=== PATIENT | female | born 1930 | race Caucasian/White ===

== ENCOUNTER 2017-02-04 01:09 | Observation (INO) | payer MEDICARE, OTHER ==
--- NOTE | 2017-02-04 02:02 | ERPHSYRPT ---
- History of Present Illness Time Seen by Provider: 02/04/17 01:40 Source: patient, family Exam Limitations: clinical condition Patient Subjective Stated Complaint: per pt "i was dx with the flu on friday at the [facility]. I started twitching about 8:30 tonight. it starts with my face and goes to my entire body. i got SOB earlier today." Triage Nursing Assessment: aox3, breathign easy unlabored, skin pink warm dry, steady slow gait, lungs clear equal bilat, muscle tremmors noted to bilat face that comes and goes Physician History: PATIENT WITH A HISTORY OR CORONARY ARTERY DISEASE, RECENTLY DIAGNOSED WITH INFLUENZA 2 DAYS AGO COMPLAINS OF RECURRENT LEFT FACIAL TWITCHING SINCE PM LAST NIGHT. DENIES FEVER, HEADACHE, BLURRED VISION, NUMBNESS, TINGLING OR WEAKNESS IN EXTREMITIES. PATIENT HAS OCCASIONAL COUGH, DENIES CHEST PAIN. Timing/Duration: yesterday Severity: moderate Character of Deficits: Left Facial, other (TWITCH) Deficits: no difficulties Baseline/Normal Cognition: alert oriented x 3 Current Cognition: alert oriented x 3 Baseline Gait: walks w/o assistance Associated Symptoms: other (FACIAL TWITCHING) Allergies/Adverse Reactions: No Known Drug Allergies Allergy (Unverified 02/04/17 01:20) Home Medications: Amlodipine Besylate 5 mg [Norvasc 5 mg] 5 mg PO DAILY 02/04/17 [History] Aspirin 81 mg PO DAILY 02/04/17 [History] Clopidogrel Bisulfate 75 mg [PLAVIX 75 MG Tablet] 75 mg PO DAILY 02/04/17 [History] Isosorbide Mononitrate 60 mg [Imdur 60MG] 60 mg PO DAILY 02/04/17 [History] Lisinopril 20 mg [Zestril 20 MG] 20 mg PO BID 02/04/17 [History] Metoprolol Tartrate 25 mg [Lopressor 25MG Tab] 25 mg PO BID 02/04/17 [ History] Multivitamin [Multivitamins] 1 each PO DAILY 02/04/17 [History] Pravastatin Sodium 40 mg PO DAILY 02/04/17 [History] Hx Tetanus, Diphtheria Vaccination/Date Given: No Hx Influenza Vaccination/Date Given: Yes (2015) Hx Pneumococcal Vaccination/Date Given: Yes - Review of Systems Constitutional: No Fever, No Chills Eyes: No Symptoms Ears, Nose, & Throat: No Symptoms Respiratory: Cough, Dyspnea Cardiac: No Chest Pain, No Edema, No Syncope Abdominal/Gastrointestinal: No Symptoms, No Abdominal Pain, No Nausea, No Vomiting, No Diarrhea Genitourinary Symptoms: No Symptoms, No Dysuria Musculoskeletal: No Symptoms, No Back Pain, No Neck Pain Skin: No Symptoms, No Rash Neurological: Tics, No Dizziness, No Focal Weakness, No Sensory Changes Psychological: No Symptoms Endocrine: No Symptoms All Other Systems: Reviewed and Negative - Past Medical History Pertinent Past Medical History: Yes Neurological History: No Pertinent History ENT History: No Pertinent History Cardiac History: Hypertension, Myocardial Infarction ([place]), Other Respiratory History: No Pertinent History Musculoskeletal History: No Pertinent History GI Medical History: No Pertinent History History: Other Psycho-Social History: No Pertinent History Female Reproductive Disorders: No Pertinent History - Past Surgical History Past Surgical History: Yes Cardiac: CABG Gastrointestinal: No Pertinent History Genitourinary: No Pertinent History Female Surgical History: Hysterectomy Other Surgical History: stents, hysterecomy, - Social History Smoking Status: Never smoker Drug Use: none Patient Lives Alone: Yes - Nursing Vital Signs Nursing Vital Signs: Initial Vital Signs Temperature 100.9 F Temperature Source Rectal Pulse Rate 69 Respiratory Rate 18 Blood Pressure [] 171/86 Pain Intensity 0 - Rich Coma Scale Best Eye Response ([place]): (4) open spontaneously Best Verbal Response ([place]): (5) oriented Best Motor Response ([place]): (6) obeys commands [place] Total: 15 - Physical Exam General Appearance: no apparent distress, alert Eye Exam: bilateral eye: normal inspection, PERRL, EOMI Ears, Nose, Throat Exam: normal ENT inspection Neck Exam: normal inspection Respiratory: normal breath sounds Cardiovascular: regular rate/rhythm, normal heart sounds Gastrointestinal: soft, normal bowel sounds Back Exam: normal inspection, normal range of motion Extremity Exam: normal inspection Peripheral Pulses: carotid (R): 2+, carotid (L): 2+, femoral (R): 2+, femoral (L ): 2+ 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, 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 Exam: normal hearing, normal speech, PERRL Coordination/Gait: normal finger to nose, normal gait Motor/Sensory: no motor deficit, no sensory deficit DTR: bicep (R): 2+, bicep (L): 2+, tricep (R): 2+, tricep (L): 2+, knee (R): 2+ , knee (L): 2+, ankle (R): 2+ Skin Exam: normal color SpO2 Interpretation: normal SpO2: 95 Oxygen Delivery: Room Air - Course EKG Interpreted by Me: RATE, NORMAL AXIS, Non-specific ST Changes - Radiology Exams Chest X-ray Interpretation: Interpreted by me (MILD CARDIOMEGALY, PREVIOUS STERNOTOMY , NO INFILTRATES) - CT Exams Head CT Interpretation: Tele-radiologist Report, No/Intracranial Hemorrhag Ordered Tests: Active Orders 24 hr Category Date Time Status Up Ad Alina ROUTINE Activity 02/04/17 03:21 Active Admission/Status Order ROUTINE Care 02/04/17 03:19 Active Cataract Lens Generator STAT Care 02/04/17 01:55 Active Code Status Order ROUTINE Care 02/04/17 03:19 Active EKG-ER Only STAT Care 02/04/17 01:55 Active IV Care Q6H Care 02/04/17 03:19 Active IV Insertion STAT Care 02/04/17 01:55 Active Intake and Output Q12H Care 02/04/17 03:19 Active Neuro Checks Q4H Care 02/04/17 03:19 Active Oxygen-ED Only NASAL CANNULA 2 lpm Care 02/04/17 01:55 Active Telemetry ROUTINE Care 02/04/17 03:19 Active Vital Signs Q4H Care 02/04/17 03:19 Active Regular Diet Diet 02/04/17 Breakfast Active CHEST 1 VIEW (PORTABLE) Stat Exams 02/04/17 01:55 Taken HEAD WITHOUT CONTRAST [CT] Stat Exams 02/04/17 01:55 Taken CBC W DIFF Stat Lab 02/04/17 01:58 Completed CMP Stat Lab 02/04/17 01:58 Completed PROTIME WITH INR Stat Lab 02/04/17 01:58 Completed UA W/ MICROSCOPIC Stat Lab 02/04/17 02:28 Completed Oxygen NASAL CANNULA 2 lpm RT 02/04/17 03:19 Active Transfer Order Routine Transfer 02/04/17 03:18 Ordered Medication Summary Generic Name Dose Route Start Last Admin Trade Name Freq PRN Reason Stop Dose Admin Amlodipine Besylate 5 mg 02/04/17 10:00 Norvasc 5 Mg PO 03/06/17 09:59 QAM ARSALAN Aspirin 81 mg 02/04/17 10:00 Ecotrin 81 Mg PO 03/06/17 09:59 DAILY [facility] Sodium Chloride 1,000 mls @ 50 mls/hr 02/04/17 02:00 02/04/17 02:13 Sodium Chloride 0.9% 1000 Ml IV 03/06/17 01:59 50 mls/hr .Q20H ARSALAN Administration Isosorbide Mononitrate 60 mg 02/04/17 10:00 Imdur 60mg PO 03/06/17 09:59 QAM [facility] Lisinopril 20 mg 02/04/17 10:00 Zestril 20 Mg PO 03/06/17 09:59 BID [facility] Metoprolol Tartrate 25 mg 02/04/17 10:00 Lopressor 25mg Tab PO 03/06/17 09:59 BID [facility] Ondansetron HCl 4 mg 02/04/17 03:19 Zofran 4 Mg/2 Ml Vial IV 03/06/17 03:18 Q6H PRN PRN NAUSEA/VOMITING Discontinued Medications Generic Name Dose Route Start Last Admin Trade Name Freq PRN Reason Stop Dose Admin Sodium Chloride Confirm 02/04/17 02:07 Sodium Chloride 0.9% 1000 Ml Administered 02/04/17 02:08 Dose 1,000 mls @ ud .ROUTE .STK-MED ONE Lorazepam 1 mg 02/04/17 02:06 02/04/17 02:13 Ativan 2 Mg/1 Ml Vial IV 02/04/17 02:07 1 mg STAT ONE Administration Lorazepam Confirm 02/04/17 02:08 Ativan 2 Mg/1 Ml Vial Administered 02/04/17 02:09 Dose 2 mg .ROUTE .STK-MED ONE Lab/Rad Data: Laboratory Result Diagrams 02/04/17 01:58 02/04/17 01:58 Laboratory Results 02/04/17 02/04/17 02/04/17 Range/Units 02:28 01:58 01:58 WBC (4.0-10.5) K/mm3 RBC (4.1-5.4) M/mm3 Hgb (12.0-16.0) gm/dl Hct (35-47) % MCV (78-100) fl MCH (26-32) pg MCHC (32-36) g/dl RDW (11.5-14.0) % Plt Count (150-450) K/mm3 MPV (6-9.5) fl Gran % (36.0-66.0) % Lymphocytes % (24.0-44.0) % Monocytes % (0.0-12.0) % Eosinophils % (0.00-5.0) % Basophils % (0.0-0.4) % Basophils # (0-0.4) INR 1.05 (0.8-3.0) Sodium 128 L (136-145) mEq/L Potassium 4.1 (3.5-5.1) mEq/L Chloride 95 L (98-107) mEq/L Carbon Dioxide 21.3 (21-32) mEq/L Anion Gap 15.6 H (5-15) MEQ/L BUN 16 (9-20) mg/dL Creatinine 1.04 (0.55-1.30) mg/dl Estimated GFR 54 ML/MIN Glucose 141 H (70-110) MG/DL Calcium 8.5 (8.5-10.1) mg/dL Total Bilirubin 0.9 (0.2-1.0) mg/dL AST 28 (15-37) U/L ALT 28 (12-78) U/L Alkaline Phosphatase 100 (46-116) U/L Serum Total Protein 7.5 (6.4-8.2) gm/dL Albumin 3.7 (3.4-5.0) g/dL Ur Collection Type CLEAN CATCH Urine Color YELLOW (YELLOW) Urine Appearance CLEAR (CLEAR) Urine pH 7.0 (5-6) Ur Specific [place] 1.010 (1.005-1.025) Urine Protein NEGATIVE (Negative) Urine Glucose (UA) NEGATIVE (NEGATIVE) mg/dL Urine Ketones NEGATIVE (NEGATIVE) Urine Nitrite NEGATIVE (NEGATIVE) Urine Bilirubin NEGATIVE (NEGATIVE) Urine Urobilinogen 0.2 (0-1) mg/dL Urine WBC (Auto) NEGATIVE (NEGATIVE) Urine RBC (Auto) TRACE-INTACT (0-5) Benoit/ul Urine Microscopic RBC 0-2 (0-2) /HPF Urine Bacteria RARE (NEGATIVE) /HPF Specimen Received [id number] 02/04/17 Range/Units 01:58 WBC 8.6 (4.0-10.5) K/mm3 RBC 4.36 (4.1-5.4) M/mm3 Hgb 13.9 (12.0-16.0) gm/dl Hct 40.0 (35-47) % MCV 91.7 (78-100) fl MCH 31.9 (26-32) pg MCHC 34.8 (32-36) g/dl RDW 13.5 (11.5-14.0) % Plt Count 152 (150-450) K/mm3 MPV 10.1 H (6-9.5) fl Gran % 82.9 H (36.0-66.0) % Lymphocytes % 9.6 L (24.0-44.0) % Monocytes % 7.3 (0.0-12.0) % Eosinophils % 0.1 (0.00-5.0) % Basophils % 0.1 (0.0-0.4) % Basophils # 0.01 (0-0.4) INR (0.8-3.0) Sodium (136-145) mEq/L Potassium (3.5-5.1) mEq/L Chloride (98-107) mEq/L Carbon Dioxide (21-32) mEq/L Anion Gap (5-15) MEQ/L BUN (9-20) mg/dL Creatinine (0.55-1.30) mg/dl Estimated GFR ML/MIN Glucose (70-110) MG/DL Calcium (8.5-10.1) mg/dL Total Bilirubin (0.2-1.0) mg/dL AST (15-37) U/L ALT (12-78) U/L Alkaline Phosphatase (46-116) U/L Serum Total Protein (6.4-8.2) gm/dL Albumin (3.4-5.0) g/dL Ur Collection Type Urine Color (YELLOW) Urine Appearance (CLEAR) Urine pH (5-6) Ur Specific [place] (1.005-1.025) Urine Protein (Negative) Urine Glucose (UA) (NEGATIVE) mg/dL Urine Ketones (NEGATIVE) Urine Nitrite (NEGATIVE) Urine Bilirubin (NEGATIVE) Urine Urobilinogen (0-1) mg/dL Urine WBC (Auto) (NEGATIVE) Urine RBC (Auto) (0-5) Benoit/ul Urine Microscopic RBC (0-2) /HPF Urine Bacteria (NEGATIVE) /HPF Specimen Received - Progress Progress Note: 02/04/17 03:13 PATIENT GIVEN IV FLUIDS NORMAL SALINE 100MG/HR, ATIVAN 1MG IV Discussed with Dr.: Kory Will see patient in: hospital (observation) (AT 0300 FOR OBSERVATION) - Departure Time of Disposition: 03:20 Departure Disposition: Observation Clinical Impression: ACUTE HYPONATREMIA, ACUTE FACIAL TIC Condition: Stable Critical Care Time: No Referrals: KACY VALENTIN [Primary Care Provider] -
[2017-02-04 02:03] LABS: INR 1.05 (0.8-3.0); PROTIME 11.7 SECONDS (9.95-12.35)
[2017-02-04 02:04] LABS: BASOPHIL % 0.1 % (0.0-0.4); Eosinophil % 0.1 % (0.00-5.0); Granulocytes % 82.9 % (36.0-66.0); Lymphocytes % 9.6 % (24.0-44.0); Mean Cell Volume 91.7 fl (78-100); Mean Corpuscular Hemoglobin 31.9 pg (26-32); Mean Platelet Volume 10.1 fl (6-9.5); Monocytes % 7.3 % (0.0-12.0); Platelet Count 152 K/mm3 (150-450); Red Blood Count 4.36 M/mm3 (4.1-5.4); Red Cell Distribution Width 13.5 % (11.5-14.0); White Blood Count 8.6 K/mm3 (4.0-10.5)
[2017-02-04] MEDS ORDERED: Ativan 2 MG/1 ML VIAL IV ONE (02:06)
[2017-02-04] MEDS ORDERED: Sodium Chloride 0.9% 1000 ML 1,000 ML ONE (02:07)
[2017-02-04] MEDS ORDERED: Ativan 2 MG/1 ML VIAL ONE (02:08)
[2017-02-04 02:11] LABS: ALBUMIN 3.7 g/dL (3.4-5.0); ANION GAP 15.6 MEQ/L (5-15); BILIRUBIN,TOTAL 0.9 mg/dL (0.2-1.0); Carbon Dioxide 21.3 mEq/L (21-32); Potassium 4.1 mEq/L (3.5-5.1); Total Protein 7.5 gm/dL (6.4-8.2)
[2017-02-04] MEDS: Sodium Chloride 0.9% 1000 ML 1,000 ML IV SCH ×2 (02:13→21:55)
[2017-02-04 02:52] LABS: Bacteria RARE /HPF (NEGATIVE); COMPLETE URINE MICROSCOPIC? YES; Collection Type CLEAN CATCH
[2017-02-04] MEDS ORDERED: Zofran 4 MG/2 ML VIAL IV PRN (03:19)
[2017-02-04] MEDS ORDERED: Valium 5 MG PO ONE (08:03)
--- NOTE | 2017-02-04 08:06 | PCM.HP ---
History of Present Illness - Chief Complaint Chief Complaint: acute hyponatremia, acute facial tic Date: 02/04/17 History of Present Illness: is a 86 year old female. who was diagnosed with influenza A last week. She has been trying to stay hydrated drinking lots of water but not eating much. She has been isolating herself to keep from infecting others. She has been very anxious and not sleeping much. Yesterday she developed whole facial spasms and neck spasms bilateral that were very frequent and started at about 20:30 the were relentless but nonpainful. She presented to the ED with them. After admission she was given 1 dose of Ativan that didn't seem to help much with the spasms. She talks through them and has no other deficits. She had this happen for a short period of time once in the past that self resolved when she was under stress. she has been taking chlorpheniramine for the flu symptoms. - Review of Systems Constitutional: Fatigue, No Fever, No Chills Eyes: No Discharge, No Eye Pain Ears, Nose, & Throat: Nose Congestion, No Ear Pain, No Ear Discharge, No Hearing Changes, No Tinnitus, No Mouth Pain, No Painful Swallowing Respiratory: Cough, No Short Of Breath Cardiac: No Chest Pain, No Edema, No Palpitations Abdominal/Gastrointestinal: No Abdominal Pain, No Nausea, No Vomiting, No Diarrhea Genitourinary Symptoms: No Dysuria, No Frequency, No Hematuria Musculoskeletal: No Arthralgias, No Back Pain, No Neck Pain Skin: No Cellulitis Neurological: No Dizziness, No Focal Weakness, No Gait Changes, No Headache, No Paralysis, No Parasthesia, No Sensory Changes, No Speech Changes, No Tremors, No Vertigo Psychological: Anxiety, No Alcohol Abuse, No Drug Abuse Hematologic/Lymphatic: No Anemia, No Blood Clots Medications & Allergies Home Medications: Home Medication List Acetaminophen/Chlorpheniramine [Coricidin Hbp Cold & Flu Tab] 2 each PO Q4H [History Confirmed 02/04/17] Amlodipine Besylate 5 mg [Norvasc 5 mg] 5 mg PO DAILY 02/04/17 [History Confirmed 02/04/17] Aspirin 81 mg PO DAILY 02/04/17 [History Confirmed 02/04/17] Clopidogrel Bisulfate 75 mg [PLAVIX 75 MG Tablet] 75 mg PO DAILY 02/04/17 [History Confirmed 02/04/17] Isosorbide Mononitrate 60 mg [Imdur 60MG] 60 mg PO DAILY 02/04/17 [History Confirmed 02/04/17] Lisinopril 20 mg [Zestril 20 MG] 20 mg PO BID 02/04/17 [History Confirmed 02/04/17] Metoprolol Tartrate 25 mg [Lopressor 25MG Tab] 25 mg PO BID 02/04/17 [ History Confirmed 02/04/17] Multivitamin [Multivitamins] 1 each PO DAILY 02/04/17 [History Confirmed ] Pravastatin Sodium 40 mg PO DAILY 02/04/17 [History Confirmed 02/04/17] Allergies/Adverse Reactions: Allergies Allergy/AdvReac Type Severity Reaction Status Date / Time No Known Drug Allergies Allergy Verified 02/04/17 04:44 - Past Medical History Past Medical History: Yes Neurological History: No Pertinent History ENT History: No Pertinent History Cardiac History: Coronary Artery Disease, Hypertension, Myocardial Infarction ( [place]), Other Respiratory History: No Pertinent History Musculoskelatal History: No Pertinent History GI Medical History: No Pertinent History History: Other Pyscho-Social History: No Pertinent History Reproductive Disorders: No Pertinent History Comment: frequent UTI's, - Female History Are you now?: No - Past Surgical History Past Surgical History: Yes Neuro Surgical History: No Pertinent History Cardiac History: CABG, Cardiac Stent Respiratory Surgery: No Pertinent History GI Surgical History: No Pertinent History Genitourinary Surgical Hx: No Pertinent History Female Surgical History: Hysterectomy Other Surgical History: stents, hysterecomy, - Social History Smoking Status: Never smoker Exposure to second hand smoke: No Alcohol: None Drug Use: none - Physical Exam Vital Signs: Vital Signs - 24 hr Temp Pulse Resp BP Pulse Ox 02/04/17 08:00 98.4 F 70 18 161/72 98 02/04/17 07:58 98.4 F 70 18 161/72 98 02/04/17 07:43 76 16 93 L 02/04/17 04:34 98.4 F 76 18 178/81 96 02/04/17 03:50 96 02/04/17 03:29 68 20 158/80 95 02/04/17 03:25 95 02/04/17 03:07 69 18 171/86 95 02/04/17 02:31 101 H 18 187/99 96 02/04/17 01:20 18 95 02/04/17 01:12 100.9 F 84 18 186/81 95 Oxygen-Last 24 hours O2 Percentage 2 Liters = 28% O2 Percentage 2 Liters = 28% O2 Percentage 2 Liters = 28% O2 Percentage 2 Liters = 28% O2 Percentage 2 Liters = 28% O2 Percentage 2 Liters = 28% O2 Percentage 2 Liters = 28% General Appearance: no apparent distress, alert Neurologic Exam: alert, oriented x 3, cooperative, 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 nml as tested, normal mood/affect, nml cerebellar function, nml station & gait, sensation nml, other (she is having brief symmetric quick rigor like spasms of her platysmus muscle mainly that she is able to talk through but cause her some distress.), No motor deficits Eye Exam: PERRL/EOMI, eyes nml inspection Ears, Nose, Throat Exam: normal ENT inspection, TMs normal, pharynx normal, moist mucous membranes Neck Exam: normal inspection, non-tender, supple, full range of motion Respiratory Exam: normal breath sounds, lungs clear, No respiratory distress Cardiovascular Exam: regular rate/rhythm, normal heart sounds, normal peripheral pulses Gastrointestinal/Abdomen Exam: soft, normal bowel sounds, No tenderness, No mass Back Exam: normal inspection, normal range of motion, No CVA tenderness, No vertebral tenderness Extremity Exam: normal inspection, normal range of motion, pelvis stable Skin Exam: normal color, warm, dry, No rash Lymphatic Exam: No adenopathy Results - Other Procedures and Tests Respiratory Therapy 02/04/17 03:19 Oxygen NASAL CANNULA 2 lpm Assessment/Plan (1) Hyponatremia Current Visit: Yes Status: Acute Assessment & Plan: suspected due to increased free water consumption with lack of food given her history and discussee water restriction while inpatient recheck bmp at noon for correction and am monitor and adjust for response. suspect this as well as the lack of sleep, stress, and possible otc cold medication precipitating the brief spasms she is having of mainly her platysmus muscle will also try a small dose of valium as she is very anxious and has not slept no for some time. Code(s): E87.1 - HYPO-OSMOLALITY AND HYPONATREMIA (2) Spasm Current Visit: Yes Status: Acute Code(s): R25.2 - CRAMP AND SPASM (3) Influenza A Current Visit: Yes Status: Acute Code(s): J10.1 - FLU DUE TO OTH IDENT INFLUENZA VIRUS W OTH RESP MANIFEST (4) Essential hypertension Current Visit: Yes Status: Chronic Code(s): I10 - ESSENTIAL (PRIMARY) HYPERTENSION (5) Coronary artery disease Current Visit: Yes Status: Chronic Code(s): I25.10 - ATHSCL HEART DISEASE OF [place] CORONARY ARTERY W/O ANG PCTRS
[2017-02-04] MEDS: ECOTRIN 81 MG PO SCH (08:21)
[2017-02-04] MEDS: Lopressor 25MG Tab PO SCH ×2 (08:21→21:46)
[2017-02-04] MEDS: Imdur 60MG PO SCH (08:21)
[2017-02-04] MEDS: Zestril 20 MG PO SCH ×2 (08:21→21:47)
[2017-02-04] MEDS: NORVASC 5 MG PO SCH (08:21)
--- NOTE | 2017-02-04 09:02 | XRAY ---
Indication: Cough. Comparison: March 25, 2012. Portable chest demonstrates borderline cardiomegaly and previous CABG surgery. Vascularity normal. Again a few tiny perihilar calcified nodes. Lungs inflated and clear. Bony thorax intact again with mild osteopenia and degenerative changes. Impression: Borderline cardiomegaly. Negative for acute pneumonic process or CHF.
--- NOTE | 2017-02-04 09:05 | XRAY ---
Indication: Facial twitching. Cardiac history. Multiple contiguous axial images obtained through the head without contrast. Comparison: None There is age-appropriate global atrophy and moderate bilateral periventricular degenerative micro-ischemia. No acute intracranial hemorrhage, abnormal extra-axial fluid collection, or mass effect. Fourth ventricle is midline without hydrocephalus. Bony calvarium intact. Visualized paranasal sinuses and mastoid air cells are clear. Impression: Nonacute senile brain. Comment: Preliminary interpretation was made by [facility]. No discrepancy. CT DI 70.38
[2017-02-04] MEDS: PLAVIX 75 MG Tablet PO SCH (11:08)
[2017-02-04] MEDS: ZOCOR 20MG PO SCH (11:08)
[2017-02-04 12:44] LABS: ANION GAP 12.4 MEQ/L (5-15); BLOOD UREA NITROGEN 13 mg/dL (9-20); CHLORIDE 100 mEq/L (98-107); Carbon Dioxide 23.1 mEq/L (21-32); Glucose 113 MG/DL (70-110); Potassium 4.2 mEq/L (3.5-5.1); SODIUM 131 mEq/L (136-145)
[2017-02-04] MEDS ORDERED: Valium 5 MG PO SCH (22:00)
[2017-02-05 05:48] LABS: ANION GAP 12.3 MEQ/L (5-15); BLOOD UREA NITROGEN 13 mg/dL (9-20); CHLORIDE 105 mEq/L (98-107); Carbon Dioxide 24.2 mEq/L (21-32); Glucose 104 MG/DL (70-110); Potassium 4.1 mEq/L (3.5-5.1); SODIUM 137 mEq/L (136-145)
[2017-02-05 07:34] VITALS: O2SAT 94
[2017-02-05 08:03] VITALS: BP 174/79; PULSE 62
--- NOTE | 2017-02-05 08:29 | PCM.DCORD ---
- Discharge Discharge Date: 02/05/17 Disposition: Home, Self-Care Condition: Stable Prescriptions: New Benzonatate [Tessalon Perle] 100 mg PO QID PRN #30 capsule PRN Reason: Cough Continue Aspirin 81 mg PO DAILY Pravastatin Sodium 40 mg PO DAILY Isosorbide Mononitrate 60 mg [Imdur 60MG] 60 mg PO DAILY Clopidogrel Bisulfate 75 mg [PLAVIX 75 MG Tablet] 75 mg PO DAILY Amlodipine Besylate 5 mg [Norvasc 5 mg] 5 mg PO DAILY Lisinopril 20 mg [Zestril 20 MG] 20 mg PO BID Metoprolol Tartrate 25 mg [Lopressor 25MG Tab] 25 mg PO BID Multivitamin [Multivitamins] 1 each PO DAILY Acetaminophen/Chlorpheniramine [Coricidin Hbp Cold & Flu Tab] 2 each PO Q4H Follow up with: KACY VALENTIN [Primary Care Provider] - 1 Week Forms: Patient Portal Information
[2017-02-05] MEDS: PLAVIX 75 MG Tablet PO SCH (09:07)
[2017-02-05] MEDS: Imdur 60MG PO SCH (09:07)
[2017-02-05] MEDS: Lopressor 25MG Tab PO SCH (09:07)
[2017-02-05] MEDS: Zestril 20 MG PO SCH (09:07)
[2017-02-05] MEDS: ZOCOR 20MG PO SCH ×2 (09:07→09:15)
[2017-02-05] MEDS: NORVASC 5 MG PO SCH (09:07)
[2017-02-05] MEDS: ECOTRIN 81 MG PO SCH ×2 (09:07→09:15)
--- NOTE | 2017-02-05 17:50 | PCM.DS ---
Discharge Summary Date of Admission: 02/04/17 03:31 Date of Discharge: 02/05/17 Admitting Physician: KACY VALENTIN Primary Care Provider: KACY VALENTIN Allergies Allergies No Known Drug Allergies Allergy (Verified 02/04/17 04:44) Hospital Summary - Hospital Course Hospital Course: Ms. Herbert lives at home alone. She was diagnosed with Influenza A last week and has been taking chlorphenramine for the symptoms. She has been drinking lots of water but not eating much. She has not been sleeping much and has been very anxious and keeping herself isolated to keep from spreading it to others. She began having spasms of her face and body that would not relent. She had no LOC they are very brief. She has had one other episode like that in the past that was much more brief that self resolved and happened at a time of increased stress. She was found to have hyponatremia in ED this is likely due to her increased free water intake and lack of solid intake. the spasms that were witnessed appeared to be mainly brief myoclonic like spasms mainly involving the platysmus muscle bilateral symmetrically. this was slowly corrected. She was given a dose of valium 5mg in the am and one in the pm and she slept and no longer had any spasms no other deficits and was feeling much better in the am and discharged to home. - Vitals & Intake/Output Vital Signs: Vital Signs Temperature 98.4 F 02/05/17 08:00 Pulse Rate 62 02/05/17 08:00 Respiratory Rate 20 02/05/17 09:50 Blood Pressure 174/79 02/05/17 08:00 O2 Sat by Pulse Oximetry 94 L 02/05/17 08:00 Oxygen-Last Documented O2 Percentage 2 Liters = 28% Intake & Output: Intake & Output 02/03/17 02/04/17 02/05/17 02/06/17 11:59 11:59 11:59 11:59 Intake Total 480 3514 Balance 480 3514 Weight 65.499 kg - Lab Result Diagrams: 02/04/17 01:58 02/05/17 05:20 Lab Results-Last 24 Hrs: Lab Results-Last 24 Hours 02/05/17 Range/Units 05:20 Sodium 137 (136-145) mEq/L Potassium 4.1 (3.5-5.1) mEq/L Chloride 105 (98-107) mEq/L Carbon Dioxide 24.2 (21-32) mEq/L Anion Gap 12.3 (5-15) MEQ/L BUN 13 (9-20) mg/dL Creatinine 0.94 (0.55-1.30) mg/dl Estimated GFR > 60 ML/MIN Glucose 104 (70-110) MG/DL Calcium 8.2 L (8.5-10.1) mg/dL - Procedures and Test Procedures and Tests throughout Hospitalization: Therapy Orders & Screens 02/04/17 03:19 Oxygen NASAL CANNULA 2 lpm Comment: Discharge Exam General Appearance: no apparent distress, alert Neurologic Exam: alert, oriented x 3, cooperative, normal mood/affect, nml cerebellar function, sensation nml, No motor deficits Skin Exam: normal color, warm, dry Eye Exam: PERRL, EOMI, eyes nml inspection Ears, Nose, Throat Exam: pharynx normal, moist mucous membranes Neck Exam: normal inspection, non-tender, supple, full range of motion Respiratory Exam: normal breath sounds, lungs clear, No respiratory distress Cardiovascular Exam: regular rate/rhythm, normal heart sounds Gastrointestinal/Abdomen Exam: soft, No tenderness, No mass Extremity Exam: normal inspection, normal range of motion Back Exam: normal inspection, normal range of motion, No CVA tenderness, No vertebral tenderness Pelvic Exam: deferred Rectal Exam: deferred Final Diagnosis/Problem List - Final Discharge Diagnosis/Problem (1) Hyponatremia Status: Resolved (2) Spasm Status: Resolved (3) Influenza A Status: Acute (4) Essential hypertension Status: Chronic (5) Coronary artery disease Status: Chronic - Discharge Disposition: Home, Self-Care Condition: Stable Prescriptions: New Benzonatate [Tessalon Perle] 100 mg PO QID PRN #30 capsule PRN Reason: Cough Continue Aspirin 81 mg PO DAILY Pravastatin Sodium 40 mg PO DAILY Isosorbide Mononitrate 60 mg [Imdur 60MG] 60 mg PO DAILY Clopidogrel Bisulfate 75 mg [PLAVIX 75 MG Tablet] 75 mg PO DAILY Amlodipine Besylate 5 mg [Norvasc 5 mg] 5 mg PO DAILY Lisinopril 20 mg [Zestril 20 MG] 20 mg PO BID Metoprolol Tartrate 25 mg [Lopressor 25MG Tab] 25 mg PO BID Multivitamin [Multivitamins] 1 each PO DAILY Acetaminophen/Chlorpheniramine [Coricidin Hbp Cold & Flu Tab] 2 each PO Q4H Instructions: Cough -- Adult, Hyponatremia, Torticollis Follow up with: KACY VALENTIN [Primary Care Provider] - 02/12/17 9:00 am (please keep scheduled followup appointment with Dr. Valentin on February 12 at 9:00 am.) Forms: Patient Portal Information
== END 2017-02-05 10:05 | disposition home or self-care (01) ==
LOC: ED 01:09 → MED SURG 03:31
PROVIDERS: ADMIT Family Medicine; ATTEND Family Medicine
DX: E87.1 Hypo-osmolality and hyponatremia (principal); R25.2 Cramp and spasm; J10.1 Influenza due to other identified influenza virus with other respiratory manifestations; I10 Essential (primary) hypertension; I25.810 Atherosclerosis of coronary artery bypass graft(s) without angina pectoris; I25.2 Old myocardial infarction; Z79.899 Other long term (current) drug therapy
CPT/HCPCS: 93268 ×2; 93041; 96374; 99285; 36000; 96360; 96361; 93005; 81000; 85610; 36415 ×2; 85025; 80048 ×2; 80053; 71010; 70450; 94760 ×2; A9270 ×10; G0378; J2060

== ENCOUNTER 2017-03-18 09:33 | Observation (INO) | payer MEDICARE, OTHER ==
[2017-03-18] MEDS ORDERED: Sodium Chloride 0.9% 1000 ML 1,000 ML IV STA (09:56)
--- NOTE | 2017-03-18 10:12 | ERPHSYRPT ---
- History of Present Illness Time Seen by Provider: 03/18/17 09:46 Source: patient Exam Limitations: clinical condition Patient Subjective Stated Complaint: PT REPORTS A TWITCHING IN HER CHIN BEGINNING LAST NIGHT-DENIES PAIN-DENIES ANY DIFFICULTY-STATES THIS HAPPENED IN JANUARY ET SHE WAS ADMITTED ON A [place] DRIP Triage Nursing Assessment: PT PINK WARM ET DRY-ALERT ET ANSWERING QUESTIONS CORRECTLY-MOVING ALL EXTREMTIES WITH EASE-NO ARM DRIFT OR FOOT DRIFT NOTED-NO FACIAL DROOP OR SLURRED SPEECH-PUPILS RESPONSIVE Physician History: PATIENT WITH HISTORY OF HYPERTENSION, CORONARY ARTERY DISEASE, CARDIAC BYPASS AND 2 STENT INSERTIONS COMPLAINS OF SPASMS AROUND HER NECK AND BELOW HER CHIN SINCE 8 PM LAST NIGHT. HOSPITALIZED FOR SIMILAR EPISODE 2 MONTHS AGO FOR HYPONATREMIA. DENIES HEADACHE, DYSPNEA, FOCAL NUMBNESS, WEAKNESS OR DIZZINESS. PATIENT DOES COMPLAIN OF A NONPRODUCTIVE COUGH. Timing/Duration: yesterday Severity: moderate Character of Deficits: other (NECK SPASMS) Deficits: no difficulties Baseline/Normal Cognition: alert oriented x 3 Current Cognition: alert oriented x 3 Baseline Gait: walks w/o assistance Associated Symptoms: other (SPASMS) Allergies/Adverse Reactions: No Known Drug Allergies Allergy (Verified 03/18/17 09:48) Home Medications: Amlodipine Besylate 5 mg [Norvasc 5 mg] 5 mg PO DAILY 02/04/17 [History] Aspirin 81 mg PO DAILY 02/04/17 [History] Clopidogrel Bisulfate 75 mg [PLAVIX 75 MG Tablet] 75 mg PO DAILY 02/04/17 [History] Isosorbide Mononitrate 60 mg [Imdur 60MG] 60 mg PO DAILY 02/04/17 [History] Lisinopril 20 mg [Zestril 20 MG] 20 mg PO BID 02/04/17 [History] Metoprolol Tartrate 25 mg [Lopressor 25MG Tab] 25 mg PO BID 02/04/17 [ History] Multivitamin [Multivitamins] 1 each PO DAILY 02/04/17 [History] Pravastatin Sodium 40 mg PO DAILY 02/04/17 [History] Hx Tetanus, Diphtheria Vaccination/Date Given: No Hx Influenza Vaccination/Date Given: Yes Hx Pneumococcal Vaccination/Date Given: Yes (2015) Immunizations Up to Date: Yes - Review of Systems Constitutional: No Fever, No Chills Eyes: No Symptoms Ears, Nose, & Throat: No Symptoms Respiratory: Cough, No Dyspnea Cardiac: No Symptoms, No Chest Pain, No Edema, No Syncope Abdominal/Gastrointestinal: No Symptoms, No Abdominal Pain, No Nausea, No Vomiting, No Diarrhea Genitourinary Symptoms: No Symptoms, No Dysuria Musculoskeletal: No Symptoms, No Back Pain, No Neck Pain Skin: No Symptoms, No Rash Neurological: Tics, No Dizziness, No Focal Weakness, No Sensory Changes Psychological: No Symptoms Endocrine: No Symptoms All Other Systems: Reviewed and Negative - Past Medical History Pertinent Past Medical History: Yes Neurological History: No Pertinent History ENT History: No Pertinent History Cardiac History: Coronary Artery Disease, Hypertension, Myocardial Infarction ( [place]), Other Respiratory History: No Pertinent History Musculoskeletal History: No Pertinent History GI Medical History: No Pertinent History History: Other Psycho-Social History: No Pertinent History Female Reproductive Disorders: No Pertinent History Other Medical History: frequent UTI's, - Past Surgical History Past Surgical History: Yes Neuro Surgical History: No Pertinent History Cardiac: CABG, Cardiac Stent Respiratory: No Pertinent History Gastrointestinal: No Pertinent History Genitourinary: No Pertinent History Female Surgical History: Hysterectomy Other Surgical History: stents, hysterecomy, - Social History Smoking Status: Never smoker Exposure to second hand smoke: No Drug Use: none Patient Lives Alone: No - Nursing Vital Signs Nursing Vital Signs: Initial Vital Signs Temperature 97.3 F Temperature Source Oral Pulse Rate 52 Respiratory Rate 16 Blood Pressure [] 116/68 Pain Intensity 0 - Rich Coma Scale Best Eye Response (Rich): (4) open spontaneously Best Verbal Response (Rich): (5) oriented Best Motor Response ([place]): (6) obeys commands [place] Total: 15 - Physical Exam General Appearance: no apparent distress, alert Eye Exam: bilateral eye: PERRL, EOMI Ears, Nose, Throat Exam: normal ENT inspection, moist mucous membranes Neck Exam: normal inspection, non-tender, supple Respiratory: normal breath sounds, lungs clear, airway intact, No respiratory distress Cardiovascular: regular rate/rhythm, No edema Gastrointestinal: soft, normal bowel sounds, No tenderness, No distention Back Exam: normal inspection Extremity Exam: normal inspection, No pedal edema Peripheral Pulses: carotid (R): 2+, carotid (L): 2+, femoral (R): 2+, femoral (L ): 2+, dorsalis-pedis (R): 2+, dorsalis-pedis (L): 2+ 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, 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 Coordination/Gait: normal finger to nose, normal gait DTR: bicep (R): 2+, bicep (L): 2+, tricep (R): 2+, tricep (L): 2+, knee (R): 2+ , knee (L): 2+, ankle (R): 2+, ankle (L): 2+ Skin Exam: normal color, warm, dry, No rash SpO2 Interpretation: normal SpO2: 96 Oxygen Delivery: Room Air - Course EKG Interpreted by Me: RATE, Sinus Rhythm, NORMAL AXIS - Radiology Exams Chest X-ray Interpretation: Discussed w/ radiologist, Other (CLEAR LUNGS, BORDERLINE CARDIOMEGALY, PREVIOUS STERNOTOMY, NO NEW,ACUTE FINDINGS) - CT Exams Head CT Interpretation: Discussed w/radiologist (STABLE NONACUTE SENILE BRAIN) Ordered Tests: Active Orders 24 hr Category Date Time Status Up Ad Alina ROUTINE Activity 03/18/17 12:34 Ordered Admission/Status Order ROUTINE Care 03/18/17 12:32 Ordered Call Admit Doctor for Orders ON ADMISSION Care 03/18/17 12:33 Ordered Code Status Order ROUTINE Care 03/18/17 12:32 Ordered EKG-ER Only STAT Care 03/18/17 09:56 Active EKG-ER Only STAT Care 03/18/17 09:59 Inactive IV Care Q6H Care 03/18/17 12:32 Ordered IV Insertion STAT Care 03/18/17 09:56 Active Neuro Checks Q4H Care 03/18/17 12:32 Ordered Telemetry ROUTINE Care 03/18/17 12:32 Ordered Vital Signs Q4H Care 03/18/17 12:32 Ordered CHEST 1 VIEW (PORTABLE) Stat Exams 03/18/17 10:25 Completed HEAD WITHOUT CONTRAST [CT] Stat Exams 03/18/17 10:46 Completed CBC W DIFF Stat Lab 03/18/17 10:05 Completed CMP Stat Lab 03/18/17 10:05 Completed MAGNESIUM Stat Lab 03/18/17 10:45 Completed UA W/ MICROSCOPIC Stat Lab 03/18/17 10:37 Completed Oxygen NASAL CANNULA 2 lpm RT 03/18/17 12:32 Ordered Transfer Order Routine Transfer 03/18/17 12:31 Ordered Medication Summary Generic Name Dose Route Start Last Admin Trade Name Delvis PRN Reason Stop Dose Admin Acetaminophen 650 mg 03/18/17 12:32 Tylenol 325 Mg PO 04/17/17 12:31 Q4H PRN PRN PAIN AND/OR FEVER Amlodipine Besylate 5 mg 03/19/17 10:00 Norvasc 5 Mg PO 04/18/17 09:59 QAM ARSALAN Aspirin 81 mg 03/19/17 10:00 Ecotrin 81 Mg PO 04/18/17 09:59 DAILY ARSALAN Sodium Chloride 1,000 mls @ 250 mls/hr 03/18/17 09:56 03/18/17 10:37 Sodium Chloride 0.9% 1000 Ml IV 03/18/17 13:55 250 mls/hr .Q4H STA Administration Sodium Chloride 1,000 mls @ 0 mls/hr 03/18/17 12:45 Sodium Chloride 0.9% 1000 Ml IV 04/17/17 12:44 .Q0M ARSALAN TKO Isosorbide Mononitrate 60 mg 03/19/17 10:00 Imdur 60mg PO 04/18/17 09:59 DAILY ARSALAN Ondansetron HCl 4 mg 03/18/17 12:32 Zofran 4 Mg/2 Ml Vial IV 04/17/17 12:31 Q6H PRN PRN NAUSEA/VOMITING Discontinued Medications Generic Name Dose Route Start Last Admin Trade Name Delvis PRN Reason Stop Dose Admin Sodium Chloride Confirm 03/18/17 10:32 Sodium Chloride 0.9% 1000 Ml Administered 03/18/17 10:33 Dose 1,000 mls @ ud .ROUTE .STK-MED ONE Lorazepam 1 mg 03/18/17 10:24 03/18/17 10:37 Ativan 2 Mg/1 Ml Vial IV 03/18/17 10:25 1 mg STAT ONE Administration Lorazepam Confirm 03/18/17 10:32 Ativan 2 Mg/1 Ml Vial Administered 03/18/17 10:33 Dose 2 mg .ROUTE .STK-MED ONE Lab/Rad Data: Laboratory Result Diagrams 03/18/17 10:05 03/18/17 10:05 Laboratory Results 0503/18/17 03/18/17 Range/Units 10:45 10:37 10:05 WBC (4.0-10.5) K/mm3 RBC (4.1-5.4) M/mm3 Hgb (12.0-16.0) gm/dl Hct (35-47) % MCV (78-100) fl MCH (26-32) pg MCHC (32-36) g/dl RDW (11.5-14.0) % Plt Count (150-450) K/mm3 MPV (6-9.5) fl Gran % (36.0-66.0) % Lymphocytes % (24.0-44.0) % Monocytes % (0.0-12.0) % Eosinophils % (0.00-5.0) % Basophils % (0.0-0.4) % Basophils # (0-0.4) Sodium 137 (136-145) mEq/L Potassium 4.2 (3.5-5.1) mEq/L Chloride 102 (98-107) mEq/L Carbon Dioxide 25.2 (21-32) mEq/L Anion Gap 14.4 (5-15) MEQ/L BUN 20 (9-20) mg/dL Creatinine 1.02 (0.55-1.30) mg/dl Estimated GFR 55 ML/MIN Glucose 120 H (70-110) MG/DL Calcium 9.3 (8.5-10.1) mg/dL Magnesium 2.1 (1.8-2.4) mg/dL Total Bilirubin 1.0 (0.2-1.0) mg/dL AST 23 (15-37) U/L ALT 23 (12-78) U/L Alkaline Phosphatase 86 (46-116) U/L Serum Total Protein 7.2 (6.4-8.2) gm/dL Albumin 3.6 (3.4-5.0) g/dL Ur Collection Type VOID Urine Color YELLOW (YELLOW) Urine Appearance CLEAR (CLEAR) Urine pH 7.0 (5-6) Ur Specific [place] 1.010 (1.005-1.025) Urine Protein NEGATIVE (Negative) Urine Glucose (UA) NEGATIVE (NEGATIVE) mg/dL Urine Ketones NEGATIVE (NEGATIVE) Urine Nitrite NEGATIVE (NEGATIVE) Urine Bilirubin NEGATIVE (NEGATIVE) Urine Urobilinogen 0.2 (0-1) mg/dL Urine WBC (Auto) TRACE (NEGATIVE) Urine RBC (Auto) TRACE-INTACT (0-5) [place]/ul Urine Microscopic RBC 0-2 (0-2) /HPF Urine Microscopic WBC 2-5 (0-5) /HPF Ur Epithelial Cells RARE (FEW) /HPF Urine Bacteria FEW (NEGATIVE) /HPF Specimen Received 03/18/17 1030 03/18/17 Range/Units 10:05 WBC 5.1 (4.0-10.5) K/mm3 RBC 4.03 L (4.1-5.4) M/mm3 Hgb 12.9 (12.0-16.0) gm/dl Hct 38.1 (35-47) % MCV 94.5 (78-100) fl MCH 32.0 (26-32) pg MCHC 33.9 (32-36) g/dl RDW 13.7 (11.5-14.0) % Plt Count 171 (150-450) K/mm3 MPV 9.4 (6-9.5) fl Gran % 63.0 (36.0-66.0) % Lymphocytes % 26.2 (24.0-44.0) % Monocytes % 9.8 (0.0-12.0) % Eosinophils % 0.6 (0.00-5.0) % Basophils % 0.4 (0.0-0.4) % Basophils # 0.02 (0-0.4) Sodium (136-145) mEq/L Potassium (3.5-5.1) mEq/L Chloride (98-107) mEq/L Carbon Dioxide (21-32) mEq/L Anion Gap (5-15) MEQ/L BUN (9-20) mg/dL Creatinine (0.55-1.30) mg/dl Estimated GFR ML/MIN Glucose (70-110) MG/DL Calcium (8.5-10.1) mg/dL Magnesium (1.8-2.4) mg/dL Total Bilirubin (0.2-1.0) mg/dL AST (15-37) U/L ALT (12-78) U/L Alkaline Phosphatase (46-116) U/L Serum Total Protein (6.4-8.2) gm/dL Albumin (3.4-5.0) g/dL Ur Collection Type Urine Color (YELLOW) Urine Appearance (CLEAR) Urine pH (5-6) Ur Specific [place] (1.005-1.025) Urine Protein (Negative) Urine Glucose (UA) (NEGATIVE) mg/dL Urine Ketones (NEGATIVE) Urine Nitrite (NEGATIVE) Urine Bilirubin (NEGATIVE) Urine Urobilinogen (0-1) mg/dL Urine WBC (Auto) (NEGATIVE) Urine RBC (Auto) (0-5) [place]/ul Urine Microscopic RBC (0-2) /HPF Urine Microscopic WBC (0-5) /HPF Ur Epithelial Cells (FEW) /HPF Urine Bacteria (NEGATIVE) /HPF Specimen Received - Progress Progress Note: 03/18/17 10:19 PATIENT GIVEN IV NORMAL SALINE AT 250ML/HR, ATIVAN 1MG IV Discussed with : Kiersten Will see patient in: hospital (observation) (AT 1215 FOR ADMISSION) - Departure Time of Disposition: 12:44 Departure Disposition: Observation Clinical Impression: MYLOCLONUS SPASM Condition: Stable Critical Care Time: No Referrals: KACY VALENTIN [Primary Care Provider] -
[2017-03-18 10:16] LABS: BASOPHIL % 0.4 % (0.0-0.4); Eosinophil % 0.6 % (0.00-5.0); Lymphocytes % 26.2 % (24.0-44.0); Mean Cell Volume 94.5 fl (78-100); Mean Platelet Volume 9.4 fl (6-9.5); Monocytes % 9.8 % (0.0-12.0); Platelet Count 171 K/mm3 (150-450); Red Blood Count 4.03 M/mm3 (4.1-5.4); Red Cell Distribution Width 13.7 % (11.5-14.0); White Blood Count 5.1 K/mm3 (4.0-10.5)
[2017-03-18] MEDS ORDERED: Ativan 2 MG/1 ML VIAL IV ONE (10:24)
[2017-03-18] MEDS ORDERED: Sodium Chloride 0.9% 1000 ML 1,000 ML ONE (10:32)
[2017-03-18] MEDS ORDERED: Ativan 2 MG/1 ML VIAL ONE (10:32)
[2017-03-18 10:40] LABS: ALBUMIN 3.6 g/dL (3.4-5.0); ANION GAP 14.4 MEQ/L (5-15); Carbon Dioxide 25.2 mEq/L (21-32); Potassium 4.2 mEq/L (3.5-5.1); Total Protein 7.2 gm/dL (6.4-8.2)
--- NOTE | 2017-03-18 10:58 | XRAY ---
Indication: Facial twitching. Comparison: February 04, 2017. Portable chest unchanged again demonstrating clear lungs, borderline cardiomegaly, calcified granulomas, and CABG surgery. No new/acute findings.
[2017-03-18 10:59] LABS: COMPLETE URINE MICROSCOPIC? YES; Collection Type VOID
[2017-03-18 11:06] LABS: Bacteria FEW /HPF (NEGATIVE); Epithelial Cells RARE /HPF (FEW)
--- NOTE | 2017-03-18 11:18 | XRAY ---
Indication: Facial twitching. Cardiac history. Multiple contiguous axial images obtained through the head without contrast. Comparison: February 04, 2017. Stable age-appropriate global atrophy and moderate bilateral periventricular degenerative micro-ischemia. Again no acute intracranial hemorrhage, abnormal extra-axial fluid collection, or mass effect. Fourth ventricle is midline without hydrocephalus. Bony calvarium intact. Visualized paranasal sinuses and mastoid air cells are clear. Impression: Stable nonacute senile brain. CTDI 61.17
[2017-03-18] MEDS ORDERED: TYLENOL 325 MG PO PRN (12:32)
[2017-03-18] MEDS ORDERED: Zofran 4 MG/2 ML VIAL IV PRN (12:32)
[2017-03-18] MEDS ORDERED: Sodium Chloride 0.9% 1000 ML 1,000 ML IV SCH (12:45)
[2017-03-18] MEDS: Zestril 20 MG PO SCH (17:17)
[2017-03-18] MEDS: Lopressor 25MG Tab PO SCH (17:17)
--- NOTE | 2017-03-18 17:59 | PCM.HP ---
History of Present Illness - Chief Complaint Chief Complaint: myoclonic twitching of face History of Present Illness: is a 86 year old female who sat down at 8 pm last night and started having jerking muscle movements of the face/cheeks bilaterally. It was so bad that her shoulders would be involved in the jerking as well. She came to the ER and was found to have grosslyl normal labs. She had a teleneurology consult and they advised stopping the amlodipine; if that fails could try small dose antiepileptic medications. She notes that she had a very busy day yesterday, working outside and inside until 8 pm. She had a similar episode in January 2017 and when she came to the ER then she was hyponatremic (notes she was just getting over influenza at that time). - Review of Systems Respiratory: Cough (slight), Wheezing (intermittent) Neurological: Other (as in HPI) All Other Systems: Reviewed and Negative Medications & Allergies Home Medications: Home Medication List Amlodipine Besylate 5 mg [Norvasc 5 mg] 5 mg PO DAILY 02/04/17 [History Confirmed 03/18/17] Aspirin 81 mg PO DAILY 02/04/17 [History Confirmed 03/18/17] Clopidogrel Bisulfate 75 mg [PLAVIX 75 MG Tablet] 75 mg PO DAILY 02/04/17 [History Confirmed 03/18/17] Isosorbide Mononitrate 60 mg [Imdur 60MG] 60 mg PO DAILY 02/04/17 [History Confirmed 03/18/17] Lisinopril 20 mg [Zestril 20 MG] 20 mg PO BID 02/04/17 [History Confirmed 03/18/17] Metoprolol Tartrate 25 mg [Lopressor 25MG Tab] 25 mg PO BID 02/04/17 [ History Confirmed 03/18/17] Multivitamin [Multivitamins] 1 each PO DAILY 02/04/17 [History Confirmed ] Pravastatin Sodium 40 mg PO HS 02/04/17 [History Confirmed 03/18/17] Allergies/Adverse Reactions: Allergies Allergy/AdvReac Type Severity Reaction Status Date / Time No Known Drug Allergies Allergy Verified 03/18/17 09:48 - Past Medical History Past Medical History: Yes Neurological History: No Pertinent History ENT History: No Pertinent History Cardiac History: Coronary Artery Disease, Hypertension, Myocardial Infarction ( [place]), Other Respiratory History: No Pertinent History Musculoskelatal History: No Pertinent History GI Medical History: No Pertinent History History: Other Pyscho-Social History: No Pertinent History Reproductive Disorders: No Pertinent History Comment: frequent UTI's, - Female History Are you now?: No - Past Surgical History Past Surgical History: Yes Neuro Surgical History: No Pertinent History Cardiac History: CABG, Cardiac Stent Respiratory Surgery: No Pertinent History GI Surgical History: No Pertinent History Genitourinary Surgical Hx: No Pertinent History Female Surgical History: Hysterectomy Other Surgical History: stents, hysterecomy, - Social History Smoking Status: Never smoker Exposure to second hand smoke: No Alcohol: None Drug Use: none - Physical Exam Vital Signs: Vital Signs - 24 hr Temp Pulse Resp BP Pulse Ox 03/18/17 12:44 56 L 16 122/60 96 03/18/17 12:40 96 03/18/17 11:55 52 L 16 116/68 97 03/18/17 10:30 65 20 97 03/18/17 09:41 97.3 F 65 18 171/83 96 General Appearance: no apparent distress Neurologic Exam: alert, oriented x 3, cooperative Eye Exam: eyes nml inspection Respiratory Exam: normal breath sounds, lungs clear, wheezing (faint exp wheeze RLL), No crackles/rales, No rhonchi Cardiovascular Exam: regular rate/rhythm, normal heart sounds, No murmur Gastrointestinal/Abdomen Exam: soft, normal bowel sounds, No tenderness, No distention, No guarding, No rebound Back Exam: normal inspection Extremity Exam: normal inspection, No pedal edema, No swelling Skin Exam: normal color, warm, dry Results - Other Procedures and Tests Respiratory Therapy 03/18/17 12:32 Oxygen NASAL CANNULA 2 lpm Assessment/Plan (1) Myoclonus Current Visit: Yes Status: Acute Assessment & Plan: I saw pt immediately s/p teleneurology consult. Will try stopping the calcium channel amadeo as suggested by neurology. Unfortunately, we won't know for sure if the symptoms are improved until a month or two has passed, since she has had symtpoms temporally. She did note that in the ER, IV ativan improved her symptoms. We did discuss having a small supply of BZD at home to take prn and she seems agreeable. She is resistant to trying any new medicine for the myoclonus because of possible side effects of dizziness and drowsiness. I noted that the neurologist had suggested trying this under the guidance of a neurologist, but at any rate will try discontinuing the Ca-channel amadeo first. Code(s): G25.3 - MYOCLONUS (2) Coronary artery disease Current Visit: No Status: Chronic Qualifiers: Coronary Disease-Associated Artery/Lesion type: unspecified vessel or lesion type [place] vs. transplanted heart: [place] heart Associated angina: angina presence unspecified Qualified Code(s): I25.10 - Atherosclerotic heart disease of [place] coronary artery without angina pectoris Assessment & Plan: stable Code(s): I25.10 - ATHSCL HEART DISEASE OF [place] CORONARY ARTERY W/O ANG PCTRS (3) Essential hypertension Current Visit: No Status: Chronic Assessment & Plan: on home meds; observe. Code(s): I10 - ESSENTIAL (PRIMARY) HYPERTENSION
[2017-03-18] MEDS ORDERED: Ativan 2 MG/1 ML VIAL IV PRN (18:02)
[2017-03-18] MEDS: PROVENTIL COMMON CANISTER IH SCH (20:59)
[2017-03-18] MEDS ORDERED: ZOCOR 20MG PO SCH (22:00)
[2017-03-19 05:45] LABS: Mean Cell Volume 95.2 fl (78-100); Mean Corpuscular Hemoglobin 31.6 pg (26-32); Mean Platelet Volume 9.8 fl (6-9.5); Platelet Count 175 K/mm3 (150-450); Red Blood Count 4.18 M/mm3 (4.1-5.4); Red Cell Distribution Width 13.8 % (11.5-14.0); White Blood Count 4.1 K/mm3 (4.0-10.5)
[2017-03-19 05:52] LABS: ANION GAP 12.2 MEQ/L (5-15); Carbon Dioxide 27.4 mEq/L (21-32); MAGNESIUM 2.1 mg/dL (1.8-2.4); Potassium 4.4 mEq/L (3.5-5.1)
[2017-03-19] MEDS: PROVENTIL COMMON CANISTER IH SCH (07:03)
[2017-03-19 07:14] VITALS: PULSE 69; O2SAT 96
[2017-03-19 07:51] VITALS: BP 164/72
--- NOTE | 2017-03-19 08:42 | PCM.DCORD ---
- Discharge Discharge Date: 03/19/17 Disposition: Home, Self-Care Condition: Stable Prescriptions: New Lorazepam 1 mg [Ativan 1 MG] 1 mg PO Q4H PRN #5 tablet PRN Reason: Muscle Spasms Albuterol Common Canister [Proventil Common Canister] 2 puff IH QID PRN #1 inhaler PRN Reason: Cough Hydrochlorothiazide 25 mg [hydroDIURIL 25 MG] 12.5 mg PO DAILY #30 tablet Continue Aspirin 81 mg PO DAILY Pravastatin Sodium 40 mg PO HS Isosorbide Mononitrate 60 mg [Imdur 60MG] 60 mg PO DAILY Clopidogrel Bisulfate 75 mg [PLAVIX 75 MG Tablet] 75 mg PO DAILY Lisinopril 20 mg [Zestril 20 MG] 20 mg PO BID Metoprolol Tartrate 25 mg [Lopressor 25MG Tab] 25 mg PO BID Multivitamin [Multivitamins] 1 each PO DAILY Discontinued Amlodipine Besylate 5 mg [Norvasc 5 mg] 5 mg PO DAILY Follow up with: KACY VALENTIN [Primary Care Provider] -
[2017-03-19] MEDS: Lopressor 25MG Tab PO SCH (09:34)
[2017-03-19] MEDS: Zestril 20 MG PO SCH (09:34)
[2017-03-19] MEDS ORDERED: Imdur 60MG PO SCH (10:00)
[2017-03-19] MEDS ORDERED: hydroDIURIL 25 MG PO SCH (10:00)
[2017-03-19] MEDS ORDERED: ECOTRIN 81 MG PO SCH (10:00)
[2017-03-19] MEDS ORDERED: NORVASC 5 MG PO SCH (10:00)
[2017-03-19] MEDS ORDERED: PLAVIX 75 MG Tablet PO SCH (10:00)
--- NOTE | 2017-03-20 12:04 | PCM.DS ---
Discharge Summary Date of Admission: 03/18/17 13:01 Date of Discharge: 03/19/17 Admitting Physician: KACY VALENTIN Consults: Consults on Case 03/18/17 13:49 Consult Neurology ROUTINE Primary Care Provider: KACY VALENTIN Allergies Allergies No Known Drug Allergies Allergy (Verified 03/18/17 09:48) Hospital Summary - Hospital Course Hospital Course: She presented with a flair of her myoclonic spasms after a long day of therapy and activity it kept her up all night with constant severe spasms that she could not control. She was seen in ED and day of admission by Dr. Burch they did a neuro consult that recommended trial of d/c her amlodpine. 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 She resolved and has had no recurrence after a dose of IV lorazepam in ED and on floor and no repeat episodes overnight. She was having some coughing and some wheezing reported on presentation an albuterol inhaler alleviated this and an Rx for this was sent home with her. We will d/c the amlodipine and start hctz and check in office in 1 week she was given a few lorazepam for at home if she has another recurrence to try to break this at home. - Vitals & Intake/Output Vital Signs: Vital Signs Temperature 97.8 F 03/19/17 07:50 Pulse Rate 69 03/19/17 07:50 Respiratory Rate 20 03/19/17 07:50 Blood Pressure 164/72 03/19/17 07:50 O2 Sat by Pulse Oximetry 96 03/19/17 07:50 Intake & Output: Intake & Output 03/18/17 03/19/17 03/20/17 03/21/17 11:59 11:59 11:59 11:59 Intake Total 1380 Balance 1380 Weight 65.363 kg - Lab Result Diagrams: 03/19/17 05:08 03/19/17 05:08 - Procedures and Test Procedures and Tests throughout Hospitalization: Therapy Orders & Screens 03/18/17 12:32 Oxygen NASAL CANNULA 2 lpm Comment: 03/18/17 17:57 Respiratory MDI QID Comment: Diagnosis: myoclonic twitching of face 03/19/17 07:12 Flutter Therapy UD Comment: qid and prn Diagnosis: myoclonic twitching of face Discharge Exam General Appearance: no apparent distress, alert Neurologic Exam: alert, oriented x 3, cooperative, normal mood/affect, nml cerebellar function, sensation nml, No motor deficits Skin Exam: normal color, warm, dry Eye Exam: PERRL, EOMI, eyes nml inspection Ears, Nose, Throat Exam: normal ENT inspection, pharynx normal, moist mucous membranes Neck Exam: normal inspection, non-tender, supple, full range of motion Respiratory Exam: normal breath sounds, lungs clear, No respiratory distress Cardiovascular Exam: regular rate/rhythm, normal heart sounds Gastrointestinal/Abdomen Exam: soft, No tenderness, No mass Extremity Exam: normal inspection, normal range of motion Back Exam: normal inspection, normal range of motion, No CVA tenderness, No vertebral tenderness Pelvic Exam: deferred Rectal Exam: deferred Final Diagnosis/Problem List - Final Discharge Diagnosis/Problem (1) Myoclonus Status: Acute (2) Coronary artery disease Status: Chronic (3) Essential hypertension Status: Chronic - Discharge Disposition: Home, Self-Care Condition: Stable Prescriptions: New Lorazepam 1 mg [Ativan 1 MG] 1 mg PO Q4H PRN #5 tablet PRN Reason: Muscle Spasms Albuterol Common Canister [Proventil Common Canister] 2 puff IH QID PRN #1 inhaler PRN Reason: Cough Hydrochlorothiazide 25 mg [hydroDIURIL 25 MG] 12.5 mg PO DAILY #30 tablet Continue Aspirin 81 mg PO DAILY Pravastatin Sodium 40 mg PO HS Isosorbide Mononitrate 60 mg [Imdur 60MG] 60 mg PO DAILY Clopidogrel Bisulfate 75 mg [PLAVIX 75 MG Tablet] 75 mg PO DAILY Lisinopril 20 mg [Zestril 20 MG] 20 mg PO BID Metoprolol Tartrate 25 mg [Lopressor 25MG Tab] 25 mg PO BID Multivitamin [Multivitamins] 1 each PO DAILY Discontinued Amlodipine Besylate 5 mg [Norvasc 5 mg] 5 mg PO DAILY Follow up with: KACY VALENTIN [Primary Care Provider] - 03/26/17 11:15 am Forms: Discharge Instructions
== END 2017-03-19 10:00 | disposition home or self-care (01) ==
LOC: ED 09:33 → MED SURG 13:01
PROVIDERS: ADMIT Family Medicine; ATTEND Family Medicine
DX: G25.3 Myoclonus (principal); I25.810 Atherosclerosis of coronary artery bypass graft(s) without angina pectoris; I10 Essential (primary) hypertension; Z79.899 Other long term (current) drug therapy; I25.2 Old myocardial infarction
CPT/HCPCS: 36000; 36415; 70450; 71010; 80048; 80053; 81000; 83735; 85025; 85027; 93005; 93268; 94640; 94760; 96360; 96361; 96374; 99285; G0378; J2060; A9270-GY

== ENCOUNTER 2021-05-07 00:14 | Emergency (ER) | payer MEDICARE, OTHER ==
[2021-05-07] MEDS ORDERED: Ativan 2 MG/1 ML VIAL IM ONE ×2 (00:36→01:48)
[2021-05-07] MEDS ORDERED: Ativan 2 MG/1 ML VIAL ONE ×2 (00:48→01:50)
--- NOTE | 2021-05-07 00:53 | ERPHSYRPT ---
- History of Present Illness Time Seen by Provider: 05/07/21 00:51 Source: patient, family Patient Subjective Stated Complaint: Patient states " I have been having facial spasms since yesterday because I have been drinking to much fluids." Triage Nursing Assessment: . Physician History: She is an 89-year-old female who presents with facial spasms and myoclonus which according to her daughter into her are related to an excessive intake of fluids. Records do indicate a history of hyponatremia. Associated with these findings she is normally treated with lorazepam successfully. Timing/Duration: today Severity: moderate Modifying Factors: Improves With: nothing Associated Symptoms: denies symptoms Allergies/Adverse Reactions: No Known Drug Allergies Allergy (Verified 05/07/21 00:36) Home Medications: Aspirin 81 mg PO DAILY 02/04/17 [History] Clopidogrel Bisulfate 75 mg [PLAVIX 75 MG Tablet] 75 mg PO DAILY 02/04/17 [History] Isosorbide Mononitrate 60 mg [Imdur 60MG] 60 mg PO DAILY 02/04/17 [History] Lisinopril 20 mg [Zestril 20 MG] 20 mg PO DAILY 02/04/17 [History] Metoprolol Tartrate 25 mg [Lopressor 25MG Tab] 25 mg PO BID 02/04/17 [History] Multivitamin [Multivitamins] 1 each PO DAILY 02/04/17 [History] Pravastatin Sodium 40 mg PO HS 02/04/17 [History] Amlodipine Besylate 5 mg PO DAILY 05/07/21 [History] Ezetimibe 10 mg [Zetia 10 MG] 10 mg PO DAILY 05/07/21 [History] Hx Tetanus, Diphtheria Vaccination/Date Given: No Hx Influenza Vaccination/Date Given: Yes Hx Pneumococcal Vaccination/Date Given: Yes Immunizations Up to Date: Yes Travel Risk - International Travel Have you traveled outside of the country in past 3 weeks: No - Coronavirus Screening Are you exhibiting any of the following symptoms?: No Close contact with a COVID-19 positive Pt in past 14-21 Days: No - Vaccine Status Have you recieved a Covid-19 vaccination: Yes 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[employer]: Moderna - Vaccination Dates Date of 2cond Vaccination (if applicable): 01/08/21 - Review of Systems Constitutional: No Fever, No Chills Eyes: No Symptoms Ears, Nose, & Throat: No Symptoms Respiratory: No Cough, No Dyspnea Cardiac: No Chest Pain, No Edema, No Syncope Abdominal/Gastrointestinal: No Abdominal Pain, No Nausea, No Vomiting, No Diarrhea Genitourinary Symptoms: No Dysuria Musculoskeletal: No Back Pain, No Neck Pain Skin: No Rash Neurological: No Dizziness, No Focal Weakness, No Sensory Changes Psychological: No Symptoms Endocrine: No Symptoms All Other Systems: Reviewed and Negative - Past Medical History Pertinent Past Medical History: Yes Neurological History: No Pertinent History ENT History: No Pertinent History Cardiac History: Coronary Artery Disease, Hypertension, Myocardial Infarction (NM), Other Respiratory History: No Pertinent History Endocrine Medical History: No Pertinent History Musculoskeletal History: No Pertinent History GI Medical History: No Pertinent History History: Other Psycho-Social History: No Pertinent History Female Reproductive Disorders: No Pertinent History Other Medical History: frequent UTI's, - Past Surgical History Past Surgical History: Yes Neuro Surgical History: No Pertinent History Cardiac: CABG, Cardiac Stent Respiratory: No Pertinent History Gastrointestinal: No Pertinent History Genitourinary: No Pertinent History Female Surgical History: Hysterectomy Other Surgical History: stents, hysterecomy, - Social History Smoking Status: Never smoker Exposure to second hand smoke: Yes Drug Use: none Patient Lives Alone: Yes - Female History Hx Last Menstrual Period: POST Hx Now: No - Nursing Vital Signs Nursing Vital Signs: Initial Vital Signs Temperature 97.8 F 05/07/21 00:26 Pulse Rate 69 05/07/21 00:26 Respiratory Rate 18 05/07/21 00:26 Blood Pressure 148/89 05/07/21 00:26 O2 Sat by Pulse Oximetry 97 05/07/21 00:26 Pain Scale Pain Intensity 0 - Physical Exam General Appearance: mild distress, alert Eye Exam: PERRL/EOMI, eyes nml inspection Ears, Nose, Throat Exam: normal ENT inspection, TMs normal, pharynx normal, moist mucous membranes, other (Myoclonic spasms of around the mouth perioral area) Neck Exam: normal inspection, non-tender, supple, full range of motion Respiratory Exam: normal breath sounds, lungs clear, No respiratory distress Cardiovascular Exam: regular rate/rhythm, normal heart sounds, normal peripheral pulses Gastrointestinal/Abdomen Exam: soft, normal bowel sounds, No tenderness, No mass Back Exam: normal inspection, normal range of motion, No CVA tenderness, No vertebral tenderness Extremity Exam: normal inspection, normal range of motion, pelvis stable Neurologic Exam: alert, oriented x 3, cooperative, normal mood/affect, nml cerebellar function, nml station & gait, sensation nml, No motor deficits Skin Exam: normal color, warm, dry, No rash Lymphatic Exam: No adenopathy SpO2: 97 - Course Nursing assessment & vital signs reviewed: Yes Ordered Tests: Active Orders 24 hr Category Date Time Status NPO (ED) STAT Care 05/07/21 00:36 Active CBC W DIFF Stat Lab 05/07/21 00:50 Completed CMP Stat Lab 05/07/21 00:50 Completed Lactic Acid Stat Lab 05/07/21 01:11 Completed Medication Summary Discontinued Medications Generic Name Dose Route Start Last Admin Trade Name Freq PRN Reason Stop Dose Admin Lorazepam 1 mg 05/07/21 00:36 05/07/21 00:49 Ativan 2 Mg/1 Ml Vial IM 05/07/21 00:37 1 mg STAT ONE Administration Lorazepam Confirm 05/07/21 00:48 Ativan 2 Mg/1 Ml Vial Administered 05/07/21 00:49 Dose 2 mg .ROUTE .STK-MED ONE Lorazepam 1 mg 05/07/21 01:48 05/07/21 01:55 Ativan 2 Mg/1 Ml Vial IM 05/07/21 01:49 1 mg STAT ONE Administration Lorazepam Confirm 05/07/21 01:50 Ativan 2 Mg/1 Ml Vial Administered 05/07/21 01:51 Dose 2 mg .ROUTE .STK-MED ONE Lab/Rad Data: Laboratory Result Diagrams 05/07/21 00:50 05/07/21 00:50 Laboratory Results 05/07/21 05/07/21 05/07/21 Range/Units 01:11 00:50 00:50 WBC 7.4 (4.0-10.5) K/mm3 RBC 4.12 (4.1-5.4) M/mm3 Hgb 13.0 (12.0-16.0) gm/dl Hct 40.4 (35-47) % MCV 98.1 (78-100) fl MCH 31.6 (26-32) pg MCHC 32.2 (32-36) g/dl RDW 13.3 (11.5-14.0) % Plt Count 223 (150-450) K/mm3 MPV 9.5 (7.5-11.0) fl Gran % 66.5 H (36.0-66.0) % Eos # (Auto) 0.09 (0-0.5) Absolute Lymphs (auto) 1.58 (1.0-4.6) Absolute Monos (auto) 0.77 (0.0-1.3) Lymphocytes % 21.5 L (24.0-44.0) % Monocytes % 10.5 (0.0-12.0) % Eosinophils % 1.2 (0.00-5.0) % Basophils % 0.3 (0.0-0.4) % Absolute Granulocytes 4.89 (1.4-6.9) Basophils # 0.02 (0-0.4) Sodium 136 L (137-145) mmol/L Potassium 4.8 (3.5-5.1) mmol/L Chloride 104 (98-107) mmol/L Carbon Dioxide 23 (22-30) mmol/L Anion Gap 13.6 (5-15) MEQ/L BUN 27 H (7-17) mg/dL Creatinine 1.59 H (0.52-1.04) mg/dL Estimated GFR 32.6 ML/MIN Glucose 109 H (74-106) mg/dL Lactic Acid 1.1 (0.4-2.0) Calcium 9.4 (8.4-10.2) mg/dL Total Bilirubin 0.60 (0.2-1.3) mg/dL AST 29 (14-36) U/L ALT 19 (0-35) U/L Alkaline Phosphatase 78 (38-126) U/L Serum Total Protein 7.4 (6.3-8.2) g/dL Albumin 4.2 (3.5-5.0) g/dL - Progress Progress: improved - Departure Departure Disposition: Home Clinical Impression: Myoclonus Condition: Stable Critical Care Time: No Referrals: JESSICA DUNN [Primary Care Provider] - Instructions: Hyponatremia (DC) Prescriptions: Lorazepam 1 mg [Ativan 1 MG] 1 mg PO Q8H PRN PRN #12 tablet PRN Reason: Muscle Spasms
[2021-05-07 00:56] LABS: Absolute Neutrophil Ct (ANC) 4.89 (1.4-6.9); BASOPHIL % 0.3 % (0.0-0.4); Basophil (Absolute #) 0.02 (0-0.4); Eosinophil % 1.2 % (0.00-5.0); Eosinophil (Absolute #) 0.09 (0-0.5); Hematocrit 40.4 % (35-47); Lymphocyte (Absolute #) 1.58 (1.0-4.6); Lymphocytes % 21.5 % (24.0-44.0); Mean Cell Volume 98.1 fl (78-100); Mean Corpuscular Hemoglobin 31.6 pg (26-32); Mean Corpuscular Hgb Concent. 32.2 g/dl (32-36); Mean Platelet Volume 9.5 fl (7.5-11.0); Monocyte (Absolute #) 0.77 (0.0-1.3); Monocytes % 10.5 % (0.0-12.0); Neutrophil % 66.5 % (36.0-66.0); Platelet Count 223 K/mm3 (150-450); Red Blood Count 4.12 M/mm3 (4.1-5.4); Red Cell Distribution Width 13.3 % (11.5-14.0); White Blood Count 7.4 K/mm3 (4.0-10.5)
[2021-05-07 01:09] LABS: ALBUMIN 4.2 g/dL (3.5-5.0); ANION GAP 13.6 MEQ/L (5-15); BILIRUBIN,TOTAL 0.6 mg/dL (0.2-1.3); Calcium 9.4 mg/dL (8.4-10.2); Creatinine 1 1.59 mg/dL (0.52-1.04); EST GLOMERULAR FILTRATION RATE 32.6 ML/MIN; Potassium 4.8 mmol/L (3.5-5.1); Total Protein 7.4 g/dL (6.3-8.2)
[2021-05-07 03:08] VITALS: BP 143/68; PULSE 60; O2SAT 98
== END 2021-05-07 03:08 | disposition home or self-care (01) ==
LOC: ED 00:14
DX: G25.3 Myoclonus (principal)
CPT/HCPCS: 36415; 80053; 83605; 85025; 96372; 99284; J2060